=== PATIENT | male | born 1985 ===

== ENCOUNTER 2025-05-11 23:42 | Emergency (ER) | payer OTHER, SELFPAY ==
[2025-05-11 23:44] VITALS: BP 129/85; PULSE 105; RESP 20; TEMP 36.7; O2SAT 98
--- NOTE | 2025-05-12 00:06 | ED_ITS ---
HPI - Alcohol General Chief Complaint: Alcohol Stated Complaint: ETOH INTOXICATION Time Seen by Provider: 05/11/25 23:44 History of Present Illness HPI narrative: Patient is a 40-year-old male who presents emergency department this evening via EMS for alcohol intoxication. EMS got called with the patient's girlfriend could not get him to wake up and get out of the car. Upon EMS arrival, in order to wake him up they had to vigorously sternal rub him. Patient admits that he did drink a lot of alcohol and smoke marijuana as well. He is now awake and alert in upset that he is even here. Denies any symptoms. Review of Systems Review of Systems: All systems are reviewed and are negative unless stated otherwise in the HPI. Exam Narrative: General: Alert, awake, afebrile, in no acute distress, intoxicated. HEENT: PERRL, no rhinorrhea, no post nasal drip, oropharynx clear. Neck: Trachea midline, no JVD, no lymphadenopathy. Cardiovascular: Regular rate and rhythm, no murmurs, rubs or gallops, no peripheral edema. Respiratory: Clear to auscultation bilaterally, no tachypnea, no wheezing, no rhonchi, no rubs, no respiratory distress. Abdomen: Soft, nontender, nondistended, no rebound, no guarding, no peritoneal signs. Musculoskeletal: No joint swelling or deformity, normal muscle tone. Skin: No rashes or petechia, no signs of infection. Psychiatric: Alert and oriented, normal behavior and judgment for situation. Neurological: Alert and oriented to person, place, and time. Follows all commands. No focal deficits, speech is clear and fluent. Course Vital Signs Vital signs: Vital Signs Temperature 98.1 F 05/11/25 23:44 Pulse Rate 105 H 05/11/25 23:44 Respiratory Rate 20 05/11/25 23:44 Blood Pressure 129/85 05/11/25 23:44 Pulse Oximetry 98 05/11/25 23:44 Oxygen Delivery Room Air 05/11/25 23:44 Temperature 98.1 F 05/11/25 23:44 Pulse Rate 105 H 05/11/25 23:44 Respiratory Rate 20 05/11/25 23:44 Blood Pressure 129/85 05/11/25 23:44 Pulse Oximetry 98 05/11/25 23:44 Oxygen Delivery Room Air 05/11/25 23:44 MDM - Alcohol MDM Narrative Medical decision making narrative: The patient was evaluated by myself in the emergency department. History is obtained from patient who is an independent historian and physical exam was performed. External medical records were reviewed at this time. Patient is refusing any workup, stating that he just wants to go home. Was informed that he can leave as soon as he can find a sober ride. Patient's girlfriend did present to the emergency department and feel comfortable taking him home. He is denying any symptoms. Differential diagnosis considerations include alcohol intoxication, alcohol abuse, polysubstance use. Comorbidities impacting this visit include none. I have evaluated and discussed social determinants of health with the patient that could potentially impact subsequent diagnosis and treatment plans. On repeat assessment of the patient, reevaluation revealed that the patient is doing well and is in no acute distress. Patient symptoms have improved since he arrived to our emergency department. Repeat vital signs were all reviewed and noted to be stable. Differential diagnosis and treatment plan were discussed with the patient at bedside. Patient agrees with discussion and after shared medical decision making agrees with discharge. All questions were answered to t he patient's satisfaction. Patient will follow up with his PCP in 3-5 days. Patient was provided with strict return precautions and instructed to return to the emergency department if any new or worsening symptoms develop. The patient was discharged in stable condition. Discharge Plan Discharge Clinical Impression: Alcoholic intoxication Patient Disposition: Home Condition: Improved Instructions: Antibiotic Form, Alcohol Intoxication (ED), Abuse of Alcohol (ED) Additional Instructions: Please follow-up with the family doctor within the next 3-5 days. Return to ED if any new or worsening symptoms develop. Patient Language: Samoan Time of Disposition: 00:05
--- OUTSIDE RECORDS SUMMARY | 2025-05-12 00:13 | XMS_ITS | Encounter Summary ---
Author Organization [facility] Address [address] [place] [address] Care Team Providers Care Transfer Driver Name Role Phone Socorro Benjamin MD Primary Care Provider [phone] Encounter Details Date Type Department Care Team (Late st Contact Info) Description 07/04/2023 MyChart Message Enc [facility] Multispecialty Care - [place] [address] [address] [place] [address] Socorro Benjamin MD [address] [place] [address] [address] [place] [address] Pinched nerve Social History Tobacco Use Types Packs/Day Years Used Date Smoking Tobacco: Every Day Cigarettes 1 20 Smokeless Tobacco: Never Comments:Counseled by Dr Cassandra sandoval Alcohol Use Standard Drinks/Week Comments Yes 20 (1 standard drink = 0.6 oz pu re alcohol) PHQ-2 Answer Date Recorded Patient Health Questionnaire-2 Score 0 07/05/2023 Sex and Gender Information Value Date Recorded Sex Assigned at Male 02/07/2025 7:05 AM CDT 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 Question Answer Date of Assessment Author Status Little interest or pleasure in doing things Not at all 07/05/2023 3:35 PM Cristal Little MA Active Feeling down, depressed, or hopeless Not at all 07/05/2023 3:35 PM BOILER PLANT WORKER Cristal Gibbs MA Activ e Patient Health Questionnaire-2 Score 0 07/05/2023 3:35 PM Cristal Little MA Active * Question Answer Date of Assessment Author Status Trouble falling or staying asleep, or sleeping too much Not at all 07/05/2023 3:35 PM Cristal Little MA Active Feeling tired or having little energy Not at all 07/05/2023 3:35 PM Cristal Little MA Active Poor appetite or overeating Not at all 07/05/2023 3:35 PM Cristal Little MA Active Feeling bad about yourself - or that you are a failure or have let yourself or your family down Not at all 07/05/2023 3:35 PM Cristal Little MA Active Trouble concentrating on things, such as reading the newspaper or watching television Not at all 07/05/2023 3:35 PM Cristal Little MA Active Moving or speaking so slowly that other people could have noticed? Or the opposite - being so fidgety or restless that you have been moving around a lot more than usual. Not at all 07/05/2023 3:35 PM Cristal Little MA Active Thoughts that you would be better off or hurting yourself in some way Not at all 07/05/2023 3:35 PM Cristal Little MA Active Patient Health Questionnaire-9 Score 0 07/05/2023 3:35 PM Cristal Little MA Active * If you checked off any problems on this questionnaire so far, Question Answer Date of Assessment Author Status How difficult have these problems made it for you to do your work, take care of things at home, or get along with other people? Not difficult at all 07/05/2023 3:35 PM Cristal Little MA Active * Over the last 2 weeks, how often have you been bothered by any of the following problems? Question Answer Date of Assessment Author Status Feeling nervous, anxious, or on edge 0 07/05/2023 3:36 PM Cristal Little MA Activ e Not being able to stop or control worrying 0 07/05/2023 3:36 PM Cristal Little MA Acti ve Worrying too much about different things 0 07/05/2023 3:36 PM BOILER PLANT WORKER Cristal Gibbs MA Acti ve Trouble relaxing 0 07/05/2023 3:36 PM Cristal Little MA Active Being so restless that it is hard to sit still 0 07/05/2023 3:36 PM Cristal Little MA Act meom Becoming easily annoyed or irritable 0 07/05/2023 3:36 PM Cristal Little MA Activ e Feeling afraid as if something awful might happen 0 07/05/2023 3:36 PM Brittany Little MA Active MICHAEL-7 Total Score 0 07/05/2023 3:36 PM Cristal Little MA Active documented as of this encounter Plan of Treatment Not on file documented as of this encounter Visit Diagnoses Not on filedocumented in this encounter Additional Health Concerns Assessment Noted Time PHQ-9 Depression Total Score: 0 03/23/20 9:57 AM CDT documented as of this encounter Care Teams Transfer Driver Relationship Specialty Start Date End Date Socorro Benjamin MD [address] [address] PCP - General INTERNAL MEDICINE 11/02/22 documented as of this encounter
--- OUTSIDE RECORDS SUMMARY | 2025-05-12 00:13 | XMS_ITS | Clinical Summary ---
Author Organization [facility] Address [address] [place] [address] Care Team Providers Care Invoice Classification Clerk Name Role Phone Socorro Benjamin MD Primary Care Provider [phone] Allergies No known active allergies Medications nicotine (NICODERM CQ) 21 MG/24HRIndication s:Tobacco dependence Place 1 patch (21 mg total) onto the skin daily. 28 patch 11 3 Active Additional Information Patient not taking.Reported on 02/07/2025 venlafaxine XR (EFFEXOR XR) 37.5 MG 24 hr capsuleIndication s:Anxiety,Compuls memo gambling Take 1 capsule (37.5 mg total) by mouth daily. 90 capsule 3 Active Additional Information Patient not taking.Reported on 02/07/2025 tiZANidine (ZANAFLEX) 2 MG tabletIndications :Cervical radiculopathy Take 1 tablet (2 mg total) by mouth nightly at bedtime. 20 tablet 5 Active traMADol (ULTRAM) 50 MG tabletIndications :Acute Pain < 7 Day Supply Take 1 tablet (50 mg total) by mouth 2 (two) times daily as needed for Pain. Indications: Acute Pain < 7 Day Supply 10 tablet 5 Active Active Problems No known active problems Encounters Date Type Department Care Team Description 02/27/2025 10:40 AM CDT Office Visit [facility] Medical [facility] Multispecialty Care - [place] [address] [address] [place] [address] Socorro Benjamin MD Follow Up; Shoulder (Left shoulder pt states it is better, but still goes numb. Ongoing 3 months. States he Finished steroid pack Tuesday states he was concerned about starting. ) 02/27/2025 Travel 02/09/2025 Results Follow-Up [facility] Medical [facility] Multispecialty Care [place] [address] [address] [place] [address] Socorro Benjamin MD XR SHOULDER LT MIN 2V, XR CERV SPINE 3V from Last 3 Months Immunizations Immunization Administration Dates Next Due Tdap (Adacel) 11/05/2022 Family History Medical History Relation Comments Skin cancer Father Cancer Maternal Grandfather Prostate ca ncer Cancer Maternal Uncle Throat cancer No Known Problems Mother Relation Status Comments Father Alive Maternal Grandfather Alive Maternal Uncle Alive Mother Alive Social History Tobacco Use Types Packs/Day Years Used Date Smoking Tobacco: Every Day Cigarettes 1 20 Smokeless Tobacco: Never Tobacco Cessation:Ready to Q uit: Yes; Counseling Given: Yes Comments:Counseled by Dr Benjamin Alcohol Use Standard Drinks/Week Comments Yes 20 (1 standard drink = 0.6 oz pu re alcohol) PHQ-2 Answer Date Recorded Patient Health Questionnaire-2 Score 0 02/27/2025 Sex and Gender Information Value Date Recorded Sex Assigned at Male 02/07/2025 7:05 AM CDT 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 Gender Identity Male 02/07/2025 7:05 AM CDT Sexual Orientation Not on file Last Filed Vital Signs Vital Sign Reading Time Taken Comments Blood Pressure 118/82 02/27/2025 10:23 AM CDT Pulse 85 02/27/2025 10:23 AM CDT Temperature 35.8 C (96.4 F) 02/27/2025 10:23 AM CDT Respiratory Rate 14 02/27/2025 10:23 AM CDT Oxygen Saturation 97% 02/27/2025 10:23 AM CDT Inhaled Oxygen Concentration - - Weight 90.9 kg (200 lb 8 oz) 02/27/2025 10:23 AM CDT Height 172.7 cm (5' 8) 02/27/2025 10:23 AM CDT Body Mass Index 30.49 02/27/2025 10:23 AM CDT Plan of Treatment Health Maintenance Due Date Last Done Comments Hepatitis B Vaccines (1 of 3 - 19+ 3-dose series) 2005 Pneumococcal Vaccine: Pediatrics (0 to 5 Years) and At-Risk Patients (6 to 49 Years) (1 of 2 - PCV) 2005 HPV Vaccines (1 - 3-dose SCD M series) 2013 Annual Physical 11/06/2023 11/05/2022 COVID-19 Vaccine (3 - 2024-2 6 season) 2025 08/26/2021, 11/04/2020 DTaP, Tdap and Td Vaccines ( 2 - Td or Tdap) 11/05/2032 11/05/2022 Hepatitis C Completed 11/05/2022 PHQ-2 (Physician [place]) Completed 02/27/2025 Meningococcal B Vaccine Aged Out No l onger eligible based on patient's age to complete this topic Meningococcal Vaccine Aged Out No jake gumaro eligible based on patient's age to complete this topic RSV Immunizations Under 20 Months Aged Out No longer eligible b ased on patient's age to complete this topic Procedures Procedure Name Priority Date/Time Associated Diagnosis Comments DRAIN/INJ JOINT/BURSA W/O US Routine 02/27/2025 10:40 AM CDT Acute pain of left shoulder HEPATITIS C ANTIBODY Routine 11/05/2022 8:35 AM BILLET BED OPERATOR Annual physical exam Establishing care with new doctor, encounter for Routine general medical examination at a health care facility Encounter for hepatitis C screening test for low risk patient from Last 3 Months or Most Recently Relevant to Health Maintenance Results * DRAIN/INJ JOINT/BURSA W/O US (02/27/2025 10:40 AM CDT) Socorro Jimenez MD - 02/27/2025 10:40 AM CDT Socorro Benjamin MD 02/27/2025 11:12 AM *Md Rowan Arthrocentesis: L acromioclavicular on 02/27/2025 10:40 AM Indications: pain Details: 18 G needle, anterior approach Outcome: tolerated well, no immediate complications Assistant Yudy Weston Consent was given by the patient. Immediately prior to procedure a time out was called to verify the correct patient, procedure, equipment, health support specialist and site/side marked as required. Patient was prepped and draped in the usual sterile fashion. Socorro Benjamin MD PROCEDURE/MINOR SURGICAL ORDERAB LES Final Result * HEPATITIS C ANTIBODY (11/05/2022 8:35 AM BILLET BED OPERATOR) HEPATITIS C AB NON-REACTI VE NON-REACT MEMO 11/06/2022 8:48 AM BILLET BED OPERATOR [facility] Comment: ANTIBODIES TO HCV NOT DETECTED. DOES NOT EXCLUDE THE POSSIBILITY OF EXPOSURE TO HCV. 11/05/2022 8:35 AM BILLET BED OPERATOR Socorro Benjamin MD LABORATORY Final Result [facility] [address] [place] [address], [place] [phone] from Last 3 Months or Most Recently Relevant to Health Maintenance Insurance [facility] Care Teams Invoice Classification Clerk Relationship Specialty Start Date End Date Socorro Benjamin MD [address] [facility] [address] [place] [id number] PCP - General INTERNAL MEDICINE 11/02/22
--- OUTSIDE RECORDS SUMMARY | 2025-05-12 00:13 | XMS_ITS | Encounter Summary ---
Author Organization [facility] Address [facility] [place] [address] Care Team Providers Care Tube Winder Name Role Phone Socorro Benjamin MD Primary Care Provider [phone] Encounter Details Date Type Department Care Team (Late st Contact Info) Description 12/31/2022 MyChart Message Enc [facility] Medical Group Multispecialty Care - [place] [address] [address] [place], [place] [id number] Socorro Benjamin MD [address] [place] [address] [address] [place] [address] Fiber gummies Social History Tobacco Use Types Packs/Day Years Used Date Smoking Tobacco: Every Day Cigarettes 1 20 Smokeless Tobacco: Never Comments:Counseled by Dr Cassandra sandoval Alcohol Use Standard Drinks/Week Comments Yes 41.7 (1 standard drink = 0.6 oz pure alcohol) PHQ-2 Answer Date Recorded Patient Health Questionnaire-2 Score 0 12/17/2022 Sex and Gender Information Value Date Recorded Sex Assigned at Male 02/07/2025 7:05 AM CDT 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 No / Unsure 12/17/2022 8:49 AM CDT documented as of this encounter Plan of Treatment Not on file documented as of this encounter Visit Diagnoses Not on filedocumented in this encounter Care Teams Tube Winder Relationship Specialty Start Date End Date Socorro Benjamin MD [address] [address] PCP - General INTERNAL MEDICINE 11/02/22 documented as of this encounter
--- OUTSIDE RECORDS SUMMARY | 2025-05-12 00:13 | XMS_ITS | Encounter Summary ---
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
--- OUTSIDE RECORDS SUMMARY | 2025-05-12 00:14 | XMS_ITS | Patient Health Record ---
Author Organization [facility] Address [address] [facility] [address] [place] [address] Care Team Providers Care Bill Adjuster Name Role Phone Catherine Vieyra Unavailable [phone] Reason For Referral No Information Medications Medication SIG (Take, Route, Frequency, Duration) Notes Start Date End Date Status Sertraline HCl 25 MG Tablet Oral Active traMADol HCl 50 MG Tablet Oral Active Nicotine 21 MG/24HR Patch 24 Hour Transdermal Active Celecoxib 200 MG Capsule Oral Active tiZANidine HCl 2 MG Tablet Oral Active ARIPiprazole 2 MG Tablet Oral Active buPROPion HCl 75 MG Tablet Oral Active Social History Social History Additional Details Category Social Info Options Details Migrated Social History Migrated Social History Tobacco Years: Current every day smoker 08/02/2023 Plan Of Treatment No Information Insurance Providers Payer Name Payer Address Payer Phone Subscriber Number Group Number Insured Name Patient Relationship to Insured Coverage Start Date Coverage End Date [facility] [address] [place] [phone] [id number] EMEKA VARELA Self - patient is the insured
[2025-05-12 00:29] VITALS: BP 142/86; PULSE 105; RESP 20; O2SAT 96
== END 2025-05-12 00:31 | disposition home or self-care (01) ==
LOC: ANHED 05-12 00:12
PROVIDERS: Emergency Provider Emergency Medicine
DX: F10.129 Alcohol abuse with intoxication, unspecified (principal); Y90.9 Presence of alcohol in blood, level not specified
CPT/HCPCS: 99283